=== PATIENT | female | born 1990 | race Asian ===

== ENCOUNTER 2020-03-17 07:48 | Outpatient (REF) | payer OTHER, SELFPAY ==
[2020-03-17 08:26] LABS: MANUAL DIFF FLAG NO
[2020-03-17 08:34] LABS: Basophils Absolute Auto 0.1 X10*3/uL (0.0-0.2); Basophils Percent Auto 0.7 % (0-2); Eosinophils Absolute Auto 0.2 X10*3/uL (0.0-0.4); Eosinophils Percent Auto 2.7 % (0-4); Hematocrit 39.2 % (37-47); Hemoglobin 12.8 g/dl (12.0-16.0); Imm Gran Abs Auto 0.01 X10*3/uL (0.00-0.03); Imm Gran Pct Auto 0.1 % (0.0-0.4); Lymphocytes Absolute Auto 2.4 X10*3/uL (1.2-4.9); Lymphocytes Percent Auto 35.1 % (20-40); Mean Corpuscular HGB Conc 32.7 g/dl (31.0-35.0); Mean Corpuscular Hemoglobin 28.6 pg (27.0-33.0); Mean Corpuscular Volume 87.5 fL (80-98); Monocytes Absolute Auto 0.5 X10*3/uL (0.1-1.2); Monocytes Percent Auto 6.5 % (2-11); Neutrophils Absolute Auto 3.8 X10*3/uL (2.0-8.3); Neutrophils Percent Auto 54.9 % (45-73); Platelet Count 277 X10*3/uL (160-400); Red Blood Count 4.48 X10*6/uL (4.20-5.50); Red Cell Distribution Width 12.9 % (11.0-16.0); White Blood Count 6.9 X10*3/uL (4.8-10.8)
[2020-03-17 08:38] LABS: Estimated Average Glucose 123 mg/dL; Hemoglobin A1C 133.3286 umol/L; Hemoglobin A1c % 5.9 %
[2020-03-17 08:50] LABS: Alanine Aminotransferase 13 U/L (0-31); Albumin Level 4.4 g/dL (3.5-5.0); Alkaline Phosphatase 50 U/L (39-117); Anion Gap 13 (12-20); Aspartate Amino Transferase 15 U/L (5-31); Bilirubin Total 1.2 mg/dL (0.0-1.0); Blood Urea Nitrogen 14 mg/dL (9-16); Calcium 8.9 mg/dL (8.4-10.2); Carbon Dioxide 27 mmol/L (22-29); Chloride 104 mmol/L (96-108); Cholesterol 175 mg/dL; Estimated Glomerular Filt Rate > 60; Glucose Random 126 mg/dL (60-115); HDL Cholesterol 74 mg/dL; Iron 94 mcg/dL (30-160); LDL Cholesterol Calculated 83 mg/dl; Percent Iron Saturation 33 % (15-50); Potassium 4.2 mmol/l (3.3-5.1); Sodium 140 mmol/L (135-145); Total Iron Binding Capacity 285 mcg/dL (228-428); Total Protein 7.7 g/dL (6.5-8.0); Triglycerides 94 mg/dL; Unsaturated Iron Binding 191 ug/dL
[2020-03-17 09:14] LABS: Ferritin 84 ng/mL (10-122); TSH reflex Free T4 1.59 mIU/mL (0.32-4.0); Vitamin D 25-OH Total 16.2 ng/mL (>30)
[2020-03-17 10:22] LABS: Vitamin B12 528 pg/mL (200-900)
[2020-03-18 14:21] LABS: Insulin Level Total 9.8 uIU/mL
[2020-03-18 17:52] LABS: Calcium (PTHI) 9.4 mg/dL (8.6-10.2); PTHI 61 pg/mL (14-64)
[2020-03-20 15:36] LABS: Zinc 83 mcg/dL (60-130)
[2020-03-22 12:32] LABS: Vitamin B1 9 nmol/L (8-30)
[2020-03-23 10:27] LABS: Vitamin A 40 mcg/dL (38-98)
== END 2020-03-17 07:49 | disposition home or self-care (01) ==
LOC: HO.LAB 07:48
PROVIDERS: PCP Internal Medicine Sports Medicine; Visit Provider Physician Assistant
DX: Z98.84 Bariatric surgery status (principal)
CPT/HCPCS: 36415; 80053; 80061; 82306; 82607; 82728; 82746; 83036; 83525; 83540; 83970; 84425; 84443; 84590; 84630; 85025; 86140

== ENCOUNTER → 2020-03-18 08:22 | Outpatient (BNVA) | payer OTHER, SELFPAY | PROVIDERS: PCP Internal Medicine Sports Medicine; Referring Provider Internal Medicine Sports Medicine; Visit Provider Physician Assistant | DX: E66.9 Obesity, unspecified (principal); Z68.36 Body mass index [BMI] 36.0-36.9, adult; K90.49 Malabsorption due to intolerance, not elsewhere classified; Z98.84 Bariatric surgery status | CPT/HCPCS: 99212; Q3014 ==

== ENCOUNTER → 2020-05-05 08:13 | Outpatient (BNVA) | payer BC, SELFPAY | PROVIDERS: PCP Internal Medicine Sports Medicine; Visit Provider Dietitian, Registered | DX: Z76.89 Persons encountering health services in other specified circumstances (principal) ==

== ENCOUNTER → 2020-08-18 09:55 | Outpatient (BNVA) | payer BC, SELFPAY | PROVIDERS: PCP Internal Medicine Sports Medicine; Visit Provider Dietitian, Registered ==

== ENCOUNTER → 2020-09-17 12:46 | Outpatient (BNVA) | payer BC, SELFPAY | PROVIDERS: PCP Internal Medicine Sports Medicine; Visit Provider Physician Assistant ==

== ENCOUNTER 2021-05-13 10:12 | Outpatient (REF) | payer BC, SELFPAY ==
[2021-05-13 10:44] LABS: MANUAL DIFF FLAG NO
[2021-05-13 11:23] LABS: Basophils Percent Auto 0.6 % (0-2); Eosinophils Absolute Auto 0.1 X10*3/uL (0.0-0.4); Eosinophils Percent Auto 1.8 % (0-4); Hematocrit 41.5 % (37.0-47.0); Hemoglobin 13.4 g/dl (12.0-16.0); Imm Gran Abs Auto 0.01 X10*3/uL (0.00-0.03); Imm Gran Pct Auto 0.1 % (0.0-0.4); Lymphocytes Absolute Auto 1.8 X10*3/uL (1.2-4.9); Lymphocytes Percent Auto 26.7 % (20-40); Mean Corpuscular HGB Conc 32.3 g/dl (31.0-35.0); Mean Corpuscular Volume 86.8 fL (80.0-98.0); Mean Platelet Volume 11.1 fL (9.4-12.3); Monocytes Absolute Auto 0.3 X10*3/uL (0.1-1.2); Monocytes Percent Auto 4.9 % (2-11); Neutrophils Absolute Auto 4.4 x10*3/uL (2.0-8.3); Neutrophils Percent Auto 65.9 % (45-73); Platelet Count 324 X10*3/uL (160-400); Red Blood Count 4.78 X10*6/uL (4.20-5.50); Red Cell Distribution Width 12.9 % (11.0-16.0); White Blood Count 6.7 X10*3/uL (4.8-10.8)
[2021-05-13 11:47] LABS: Estimated Average Glucose 123 mg/dL; Hemoglobin A1c % 5.9 %
[2021-05-13 12:07] LABS: Ferritin 96 ng/mL (10-122); TSH reflex Free T4 0.95 uIU/mL (0.32-4.0); Vitamin D 25-OH Total 12.9 ng/mL (>30)
[2021-05-13 12:08] LABS: Alanine Aminotransferase 13 U/L (0-31); Albumin Level 4.4 g/dL (3.5-5.0); Alkaline Phosphatase 61 U/L (39-117); Anion Gap 11 (12-20); Aspartate Amino Transferase 12 U/L (5-31); Bilirubin Total 1.2 mg/dL (0.0-1.0); Blood Urea Nitrogen 12 mg/dL (9-16); C Reactive Protein 0.36 mg/dL (< or = 0.50); Calcium 9.5 mg/dL (8.4-10.2); Carbon Dioxide 28 mmol/L (22-29); Chloride 106 mmol/L (96-108); Cholesterol 183 mg/dL; Estimated Glomerular Filt Rate > 60; Glucose Fasting 109 mg/dL (60-99); HDL Cholesterol 65 mg/dL; Iron 80 mcg/dL (30-160); LDL Cholesterol Calculated 105 mg/dl; Percent Iron Saturation 26 % (15-50); Potassium 4.7 mmol/L (3.3-5.1); Sodium 140 mmol/L (135-145); Total Iron Binding Capacity 302 mcg/dL (228-428); Total Protein 8.2 g/dL (6.5-8.0); Triglycerides 69 mg/dL; Unsaturated Iron Binding 222 ug/dL
[2021-05-13 12:25] LABS: Folate 14.6 ng/mL (> or = 4.0); Vitamin B12 532 pg/mL (200-900)
[2021-05-17 13:31] LABS: Calcium (PTHI) 9.7 mg/dL (8.6-10.2); PTHI 49 pg/mL (14-64)
[2021-05-18 01:20] LABS: Zinc 75 mcg/dL (60-130)
[2021-05-18 16:01] LABS: Vitamin B1 <6 nmol/L (8-30)
[2021-05-18 19:17] LABS: Vitamin A 35 mcg/dL (38-98)
== END 2021-05-13 10:13 | disposition home or self-care (01) ==
LOC: HO.LAB 10:12
PROVIDERS: Physician Assistant; PCP Thoracic Surgery (Cardiothoracic Vascular Surgery); Visit Provider Surgery
DX: K90.49 Malabsorption due to intolerance, not elsewhere classified (principal); E66.01 Morbid (severe) obesity due to excess calories; Z98.84 Bariatric surgery status
CPT/HCPCS: 36415; 80053; 80061; 82306; 82607; 82728; 82746; 83036; 83540; 83970; 84425; 84443; 84590; 84630; 85025; 86140

== ENCOUNTER 2024-10-22 11:43 | Outpatient (REF) | payer OTHER, SELFPAY ==
[2024-10-22 12:06] LABS: MANUAL DIFF FLAG NO
[2024-10-22 12:10] LABS: Basophils Absolute Auto 0.1 X10*3/uL (0.0-0.2); Basophils Percent Auto 0.6 % (0-2); Eosinophils Absolute Auto 0.2 X10*3/uL (0.0-0.4); Eosinophils Percent Auto 2.1 % (0-4); Hematocrit 37.2 % (37.0-47.0); Hemoglobin 12.4 g/dl (12.0-16.0); Imm Gran Abs Auto 0.04 X10*3/uL (0.00-0.03); Imm Gran Pct Auto 0.5 % (0.0-0.4); Lymphocytes Absolute Auto 1.8 X10*3/uL (1.2-4.9); Lymphocytes Percent Auto 23.4 % (20-40); Mean Corpuscular HGB Conc 33.3 g/dl (31.0-35.0); Mean Corpuscular Hemoglobin 28.5 pg (27.0-33.0); Mean Corpuscular Volume 85.5 fL (80.0-98.0); Mean Platelet Volume 10.5 fL (9.4-12.3); Monocytes Absolute Auto 0.5 X10*3/uL (0.1-1.2); Monocytes Percent Auto 6.2 % (2-11); Neutrophils Absolute Auto 5.2 x10*3/uL (2.0-8.3); Neutrophils Percent Auto 67.2 % (45-73); Platelet Count 272 X10*3/uL (160-400); Red Blood Count 4.35 X10*6/uL (4.20-5.50); Red Cell Distribution Width 13.2 % (11.0-16.0); White Blood Count 7.7 X10*3/uL (4.8-10.8)
[2024-10-22 12:27] LABS: Estimated Average Glucose 105 mg/dL; Hemoglobin A1c % 5.3 % (<6.0)
[2024-10-22 12:33] LABS: Alanine Aminotransferase 24 U/L (0-31); Albumin Level 4.4 g/dL (3.5-5.0); Alkaline Phosphatase 57 U/L (39-117); Anion Gap 9 (12-20); Aspartate Amino Transferase 23 U/L (5-31); Bilirubin Total 0.8 mg/dL (0.0-1.0); Blood Urea Nitrogen 12 mg/dL (9-16); Carbon Dioxide 28 mmol/L (22-29); Chloride 104 mmol/L (96-108); Cholesterol 165 mg/dL (<200); Estimated Glomerular Filt Rate > 60; Glucose Random 92 mg/dL (60-115); HDL Cholesterol 71 mg/dL (>40); Iron 65 mcg/dL (30-160); LDL Cholesterol Calculated 79 mg/dL (<100); Percent Iron Saturation 25 % (15-50); Potassium 3.9 mmol/L (3.3-5.1); Sodium 137 mmol/L (135-145); Total Iron Binding Capacity 260 mcg/dL (228-428); Total Protein 7.3 g/dL (6.5-8.0); Triglycerides 79 mg/dL (<150); Unsaturated Iron Binding 195 ug/dL
[2024-10-22 12:50] LABS: Ferritin 34 ng/mL (10-122); Insulin 6 uU/mL (2-29); TSH reflex Free T4 1.11 uIU/mL (0.32-4.0); Vitamin D 25-OH Total 18.7 ng/mL (>30)
[2024-10-22 13:04] LABS: Folate 9.5 ng/mL (> or = 4.0); Vitamin B12 709 pg/mL (200-900)
--- OUTSIDE RECORDS SUMMARY | 2024-10-22 14:04 | XMS_ITS | Clinical Summary ---
Author Organization [facility] Address [address] [place], [place] [id number] Care Team Providers Care Boxing Machine Operator Name Role Phone Stu Encinas MEGA Primary Care Provider [phone]- [phone] Allergies Active Allergy Reactions Criticality Noted Date Comments Severino Anaphylaxis High 03/06/2024 Medications amphetamine-dex troamphetamine (ADDERALL XR) 30 MG 24 hr capsule 2 Active amphetamine-dex troamphetamine (ADDERALL) 5 MG tablet 2 Active Thiamine HCl (B-1) 100 MG TABS Take 1 tablet by mouth daily. 2 Active FLUoxetine (PROZAC) 20 MG capsule Take 20 mg by mouth daily. Active FLUoxetine (PROZAC) 10 MG capsule Take 10 mg by mouth daily. Active hydrOXYzine (ATARAX) 10 MG tablet Take 10 mg by mouth 2 (two) times daily as needed. Active fluticasone (FLOVENT HFA) 44 MCG/ACT inhaler Inhale into the lungs. Active norethindrone-e thinyl estradiol (JUNEL 06/03) 1-20 MG-MCG Take 1 tablet by mouth daily. 4 Active Semaglutide, 1 MG/DOSE, 4 MG/3ML RD PEN Inject 1 mg into the skin. 4 Active EPINEPHrine (EPIPEN) 0.3 MG/0.3ML RD A-IJ 0.3 mg by Local Infusion route. 4 10/06/19 25 Active Problems No known active problems Family History Medical History Relation Comments Hypertension Father Cancer, Other or Unknown Type Mother edson ng Diabetes Mother Relation Status Comments Father Mother Social History Tobacco Use Types Packs/Day Years Used Date Smoking Tobacco: Never Smokeless Tobacco: Never Alcohol Use Standard Drinks/Week Comments Not Currently 0 (1 standard drink = 0.6 oz pur e alcohol) Comments No Sex and Gender Information Value Date Recorded Sex Assigned at Female 02/18/2022 10:48 PM EDT Legal Sex Female 2:23 PM EDT Gender Identity Female 02/18/2022 10:48 PM EDT Sexual Orientation Straight 02/18/2022 10 :48 PM EDT Last Filed Vital Signs Vital Sign Reading Time Taken Comments Blood Pressure 108/72 03/14/2024 9:41 AM EDT Pulse - - Temperature - - Respiratory Rate - - Oxygen Saturation - - Inhaled Oxygen Concentration - - Weight 79.1 kg (174 lb 6.1 oz) 03/14/2024 9:41 A M EDT Height 160 cm (5' 3 ) 03/14/2024 9:41 AM EDT Body Mass Index 30.89 03/14/2024 9:41 AM EDT Plan of Treatment Health Maintenance Due Date Last Done Comments HPV Vaccine (1 - 3-dose series) 01/06/2004 Hepatitis B (HepB) Vaccine ( 1 of 3 - 19+ 3-dose series) 01/06/2008 Tdap/Td Vaccine >11 yo (1 - Tdap) 01/06/2008 COVID-19 Vaccine (2023-2 5 season) 2024 10/11/2020, 09/11/2020 Annual SDOH Screening 05/15/2024 Influenza Vaccine (Season Ended) 2025 Cervical Cancer Screening 03/06/2027 03/06/2024 Haemophilus Influenzae Type B (Hib) Vaccine Aged Out No longer eligible b ased on patient's age to complete this topic Hepatitis A (HepA) Vaccine Aged Out N o longer eligible based on patient's age to complete this topic Meningococcal ACWY Aged Out No longer eligible based on patient's age to complete this topic Pneumococcal Vaccines 6-49 y o Risk Aged Out No longer eligible b ased on patient's age to complete this topic Polio (IPV) Aged Out No longer eligi ble based on patient's age to complete this topic Rotavirus (RV) Vaccine Aged Out No lo nger eligible based on patient's age to complete this topic Procedures Procedure Name Priority Date/Time Associated Diagnosis Comments PAP SMEAR Routine 03/06/2024 10:13 AM EDT Well woman exam with routine gynecological exam from Last 3 Months or Most Recently Relevant to Health Maintenance Results * Pap Smear (03/06/2024 10:13 AM EDT) Case Report Gynecologic Cytology Report ? Case: [id number] ? Authorizing Provider: ??Cassie Valdes, MEGA ?? Collected: ? 03/06/2024 1013 ? Ordering Location: ? [facility] ?? Received: ?03/06/2024 1013 ? First Screen: ?Mandie Rick ? Specimen: ?Thin Prep Imaged Slide, Cervical/Endocervi shobha ? 03/27/2024 10:04 AM EST [facility] Diagnosis Negative (No evidence of intraepithelial lesions or malignancy) 03/27/2024 10:04 AM EST [facility] Specimen Adequacy Satisfactory for evaluation: Endocervical cells present 03/27/2024 10:04 AM EST [facility] Clinical History Normal Exam 03/27/2024 10:04 AM EST [facility] Sign Out Location [facility] [address], [address] [place] [address] 03/27/2024 10:04 AM EST [facility] Amendment Comment 03/27/2024 10:04 AM EST [facility] Tissue (Cervical/Endoce rvical) Non-blood Collection / Unknown 03/06/2024 10:13 AM EDT 03/06/2024 10:13 AM EDT us Cassie aVldes SENIOR FRONT END ENGINEER PATHOLOGY/CYTOLOGY ORDERA BLES Final Result [facility] [address] [place], [place] [id number] from Last 3 Months or Most Recently Relevant to Health Maintenance Insurance [employer] Care Teams Boxing Machine Operator Relationship Specialty Start Date End Date Stu Encinas APRN [id number] [place] [address] PCP - General 03/05/24
[2024-10-26 00:53] LABS: Vitamin A 42 mcg/dL (38-98)
[2024-10-26 01:13] LABS: Zinc 61 mcg/dL (60-130)
[2024-10-26 16:53] LABS: Vitamin B1 8 nmol/L (8-30)
== END 2024-10-22 11:44 | disposition home or self-care (01) ==
LOC: HO.LAB 11:43
PROVIDERS: Visit Provider Physician Assistant Surgical
DX: Z98.84 Bariatric surgery status (principal); Z13.1 Encounter for screening for diabetes mellitus; Z13.6 Encounter for screening for cardiovascular disorders
CPT/HCPCS: 36415; 80053; 80061; 82306; 82607; 82728; 82746; 83036; 83525; 83540; 84425; 84443; 84590; 84630; 85025; 86140

== ENCOUNTER 2024-10-23 15:31 | Outpatient (AMB) | payer OTHER, SELFPAY ==
--- NOTE | 2024-10-23 15:34 | MHC.OFFVISWM ---
VS Expanded 10/23/24 15:44 BP 142/74 H Blood Pressure Location Rt brachial Blood Pressure Position Sitting Pulse 85 Pulse Source Pulse Oximeter Temp 96.7 F L Temperature Source Temporal Artery Scan Pulse Oximetry 100 Oxygen Delivery Method Room Air Height 5 ft 3 in Weight 186 lb 3.2 oz BMI 33.0 Body Fat % 35.8 Body Fat Mass 66.6 Fat Free Mass 119.4 Visceral Fat Rating 7.0 Body Water % 46.0 Body Water Mass 85.6 Muscle Mass/Score 113.6 Basal Metabolic Rate/Score 1,644 Intake Visit Reasons: OV PO LSG 01/10/2019 Rhinestone Setter Required: No Allergies clarithromycin [CLARITHROMYCIN] Allergy (Severe, Unverified 09/17/20 13:00) SEVERE PAIN vandana [VANDANA] Allergy (Severe, Unverified 09/17/20 13:00) ANAPHYLAXIS ENVIRONMENTAL Allergy (Intermediate, Uncoded 09/17/20 13:00) HAYFEVER Medication List - Last Reconciled 10/23/24 by KESHIA Garvin cholecalciferol (vitamin D3) 125 mcg PO DAILY fluoxetine (Prozac) 30 mg PO DAILY levonorgestrel (Mirena) intrauterine methylphenidate HCl (Ritalin) 5 mg PO BID HPI Comments Details: Patient is a 34-year-old female who presents to the office today in follow-up. She is approximately 5 years 10 months post sleeve gastrectomy performed on 01/10/2019. She was last seen in the office in September 2020 with a weight of 190.4 lb and a BMI of 33.7. Weight today is 186.2 lb with a BMI of 33. She states that she has not been seen in the office in several years as she has now relocated to [place]. She continues to work in [employer] although returns to the [place] area approximately 4 times per year. meal plan: none exercising none gym membership [employer] in [facility] Medical History GERD (gastroesophageal reflux disease) Anxiety Depression Seasonal allergies Asthma Ovarian cyst Malabsorption due to intolerance, not elsewhere classified Obesity (BMI 30-39.9) Surgical History History of right salpingo-oophorectomy S/P laparoscopic sleeve gastrectomy Family History Mother No problems noted. Father Hypertension Brother Hypertension Hyperlipidemia Brother Obesity Hypertension Sister No problems noted. Social History Alcohol intake: current Alcohol intake frequency: holidays/special occasions only Patient Tobacco Use Status: Never used Tobacco Assessment & Plan Assessment & Plan (1) S/P laparoscopic sleeve gastrectomy: Comment: DOS 01/10/19, Dr. Scott Code(s): Z98.84 - Bariatric surgery status Category: Surgical Plan: Patient has not been seen in several years. Labs were drawn yesterday. She was found to have low vitamin-D level which was replaced, other labs are pending. She has been given information regarding [facility]. Encouraged to exercise daily with a goal of burning 300 calories per day. We will have her return to the office in a proximally 3-4 weeks. She was additionally given my cell phone number/she may text me her weight is weekly and if there is any questions or concerns.
[2024-10-23 15:44] VITALS: BP 142/74; PULSE 85; TEMP 35.9; O2SAT 100; BMI 33.0
--- OUTSIDE RECORDS SUMMARY | 2024-10-23 17:54 | XMS_ITS | Clinical Summary ---
Author Organization [facility] Address [address] [place], [place] [address] Care Team Providers Care Glazier Apprentice Name Role Phone Stu Encinas MEGA Primary Care Provider +1- [phone] Allergies Active Allergy Reactions Criticality Noted Date [...] Case Report Gynecologic Cytology Report ? Case: [id number] ? Authorizing Provider: ??Cassie Valdes, MEGA ?? Collected: ? 03/06/2024 1013 ? Ordering Location: ? [facility] ?? Received: ?03/06/2024 1013 ? First Screen: ?Mandie Rick ? Specimen: ?Thin Prep Imaged Slide, Cervical/Endocervi shobha ? 03/27/2024 10:04 AM EST [facility] Diagnosis Negative (No evidence of intraepithelial lesions or malignancy) 03/27/2024 10:04 AM EST [facility] at 1004 EST Specimen Adequacy Satisfactory for evaluation: Endocervical cells present 03/27/2024 10:04 AM EST [facility] Clinical History Normal Exam 03/27/2024 10:04 AM EST [facility] Sign Out Location [facility] [address], [place] [address] 03/27/2024 10:04 AM EST [facility] Amendment Comment 03/27/2024 10:04 AM EST [facility] Tissue (Cervical/Endoce rvical) Non-blood Collection / Unknown 03/06/2024 10:13 AM EDT 03/06/2024 10:13 AM EDT us Cassie Valdes NURSE TRANSITIONAL PATHOLOGY/CYTOLOGY ORDERA BLES Final Result [facility] [address] [place], [place] [id number] from Last 3 Months or Most Recently Relevant to Health Maintenance Insurance [employer] OPEN ACCESS PLUS Care Teams Glazier Apprentice Relationship Specialty Start Date End Date Stu Encinas APRN [id number] [place] [address] PCP - General 03/05/24
== END 2024-10-23 16:11 | disposition home or self-care (01) ==
LOC: HO.HBS 15:32
PROVIDERS: PCP Thoracic Surgery (Cardiothoracic Vascular Surgery); Visit Provider Physician Assistant Surgical
DX: E66.9 Obesity, unspecified (principal); Z68.33 Body mass index [BMI] 33.0-33.9, adult; Z90.3 Acquired absence of stomach [part of]; Z98.84 Bariatric surgery status
CPT/HCPCS: 99213